=== PATIENT | female | born 2000 | race American Indian/Alaskan Native ===

== ENCOUNTER 2021-07-29 18:44 | Emergency (ER) | payer OTHER ==
[2021-07-29 18:53] VITALS: BP 138/88
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
[2021-07-29] MEDS ORDERED: IBUPROFEN 600 MG TAB PO ONE (19:31)
[2021-07-29] MEDS ORDERED: ACETAMINOPHEN 325 MG TAB PO ONE (19:31)
== END 2021-07-29 20:59 | disposition home or self-care (01) ==
LOC: ED 18:44
DX: S16.1XXA Strain of muscle, fascia and tendon at neck level, initial encounter (principal); S29.011A Strain of muscle and tendon of front wall of thorax, initial encounter; M62.830 Muscle spasm of back; M54.50 Low back pain, unspecified; V89.2XXA Person injured in unspecified motor-vehicle accident, traffic, initial encounter; Y93.89 Activity, other specified; Y92.488 Other paved roadways as the place of occurrence of the external cause; Y99.8 Other external cause status
CPT/HCPCS: 99282